=== PATIENT | male | born 1950 | race Caucasian/White ===

== ENCOUNTER → 2017-02-16 | Outpatient (CLI) | payer MEDICARE, OTHER ==
[~2017-02-16] MED LIST: AMLODIPINE BESY10 MG; ASPIRIN PO; ASPIRIN325 M1 PO; COZAAR PO; EFFEXOR37.5 MG PO; FLEXERIL PO; FLEXERIL10 M1; GABAPENTIN300 M2 PO; HYDROCODON-ACE1 EAC1; KCL PO; LASIX PO; LORTAB 7.5-3251 EACH PO; LORTAB 7.51 TAB PO; LOSARTAN POTASS50 MG PO; NEURONTIN PO; NORVASC PO; PRAVACHOL PO; PRAVACHOL20 MG; PRILOSEC PO; VENLAFAXINE H37.5 MG PO
--- NOTE | ~2017-02-16 | CR63 ---
[facility] A Service of [facility] & [facility] RADIOLOGY TEXT RESULTS PATIENT: GREY MATTSON LOCATION: [facility] : 50 UNIT #: [id number] AGE: [address]: Jorge Alberto Farias MD SEX: M ORDER DR: [id number] [facility] [address] [place], [place] [address] [id number] MR#: [id number] Acc #: [id number] NAME: GREY MATTSON : 1950 SEX: M STUDY DATE/TIME: 02/16/2017 9:52 UNIT: [facility] ROOM: STUDY DESCRIPTION: CR Chest 2 View Attending Physician: Jorge Alberto Farias M.D. Referring Physician: Jorge Alberto Farias M.D. Ordering Physician: Jorge Alberto Farias M.D. Primary Care Physician: Jorge Alberto Farias M.D. MEDICAL IMAGING REPORT This report is preliminary unless electronic signature is present EXAM Chest x-ray, 02/16 INDICATION Kidney cancer. Observation malignant neoplasm. Shortness of air for 3 days. History of smoking and COPD. FINDINGS 2 views of the chest are compared with 06/25/2016. Again seen is emphysema with some underlying interstitial fibrosis. No acute infiltrates are seen. There is no pneumothorax. Cardiac and mediastinal contours are unchanged. IMPRESSION Emphysema with some fibrosis. No acute findings in the chest. Dictated by... Jorge Alberto Barahona Jr., M.D. THIS IS AN ELECTRONICALLY VERIFIED REPORT Jorge Alberto Barahona Jr., M.D. at 02/16/2017 3:54 PM Kalyani TD: 02/16/2017 11:47 JOB #: [id number] MEDICAL IMAGING REPORT Page 1 of 1 COPY
[2017-02-16 11:03] LABS: ALBUMIN SERUM 4.1 g/dL (3.5-5.0); BILIRUBIN,TOTAL 0.5 mg/dL (0.2-2.0); BUN/CREATININE RATIO 16.92; CALCIUM SERUM 9.1 mg/dL (8.4-10.2); CREATININE SERUM 1.3 mg/dL (0.6-1.4); GLOM FILT RATE Estimated 56.9 mL/min (>60); POTASSIUM 4.8 mmol/L (3.5-5.1)
== END | disposition home or self-care (01) ==
LOC: CRAD 09:32
PROVIDERS: Urology
DX: C64.2 Malignant neoplasm of left kidney, except renal pelvis (principal); J43.9 Emphysema, unspecified; J84.10 Pulmonary fibrosis, unspecified
CPT/HCPCS: 36415; 71020; 80053